=== PATIENT | male | born 1970 | race Caucasian/White ===

== ENCOUNTER 2021-07-31 13:14 | Outpatient (CLI) | payer OTHER, SELFPAY ==
--- NOTE | 2021-07-31 | CT_ITS ---
WS: [id number] CT PELVIS WITHOUT CONTRAST. HISTORY: CHRONIC PELVIC PAIN TECHNIQUE: Contiguous imaging is performed of the pelvis without contrast. Coronal and sagittal refor mats are reviewed. All CT scans at [facility] use at least one of these dose optimization bi hniques: automated exposure control; mA and/or kV adjustment per patient size (includes targeted exam s where dose is matched to clinical indication); or iterative reconstruction. DLP: 866.9 mGycm COMPARISON: None available. No acute fracture or bone destruction. Very small osteophytes along the anterior SI joints. No erosio ns. Sacral foramina are normal. No osteoblastic or osteolytic bone disease. Very mild narrowing of th e hip joints. There is an osteophyte from the lateral RIGHT acetabulum which could cause some mild im pingement upon the femoral heads during activity. Small osteophyte from the LEFT acetabulum. The appendix is normal. No GI tract obstruction. Numerous diverticula in the sigmoid colon. No acute inflammation or obstruction. The urinary bladder is not distended. CT/CT pelvis wo con [id number] IMPRESSION: 1. Small acetabular osteophytes may be encroaching upon the femoral heads duri ng activity with mild impingement. Osteophyte on the RIGHT is slightly greater than the LEFT. 2. Sigmoid diverticulosis without acute diverticulitis.
--- NOTE | 2021-07-31 | CT_ITS ---
WS: [id number] CT LUMBAR SPINE, noncontrast. HISTORY: CHRONIC BACK PAIN TECHNIQUE: Contiguous 2.5 mm axial imaging are performed. Sagittal and coronal reformats are submitte d and reviewed. All CT scans at [facility] use at least one of these dose optimization techni ques: automated exposure control; mA and/or kV adjustment per patient size (includes targeted exams w here dose is matched to clinical indication); or iterative reconstruction. IV contrast: None DLP: 2096.61 mGycm COMPARISON: None available. Normal posterior alignment. No fractures. Very minimal disc space narrowing at L5-S1. Small endplate osteophytes throughout the lumbar spine. L1-2: Normal. L2-3: Normal. L3-4: Mild ligamentum flavum and facet arthritis. No stenosis. L4-5: Less than 2 mm retrolisthesis of L4 with mild annular disc bulging and osteophytic ridging. Mil d ligamentum flavum hypertrophy and facet arthritis. Combination of findings is causing mild central and bilateral subarticular recess and foraminal stenosis. There is very mild encroachment upon the tr aversing L5 nerve roots. L5-S1: Mild asymmetric disc bulging. There is a very tiny LEFT paracentral disc protrusion with sligh t contact on the LEFT S1 nerve root. Very minimal encroachment into the LEFT subarticular recess. Visualized sacrum is normal. Very mild atherosclerosis within the abdominal aorta. No aneurysm. CT/CT lumbar spine wo con* [id number] IMPRESSION: 1. No significant central or foraminal stenosis. 2. Mild central, bilateral subarticular recess and foraminal stenosis at L4-5 due to combination of degenerative changes as above. Very mild encroachment upo n the traversing L5 nerve roots. 3. Very tiny disc protrusion abutting the LEFT S1 nerve root with minimal narr owing of the LEFT subarticular recess.
== END 2021-07-31 13:15 | disposition home or self-care (01) ==
PROVIDERS: PCP Family Medicine; Visit Provider Family Medicine
DX: R10.2 Pelvic and perineal pain (principal); M25.70 Osteophyte, unspecified joint; K57.30 Diverticulosis of large intestine without perforation or abscess without bleeding; M48.061 Spinal stenosis, lumbar region without neurogenic claudication; M53.3 Sacrococcygeal disorders, not elsewhere classified
CPT/HCPCS: 72131; 72192